=== PATIENT | female | born 1970 | race Caucasian/White ===

== ENCOUNTER 2017-01-07 14:25 | Emergency (ER) | payer OTHER ==
[~2017-01-07 14:25] MED LIST: ANTIVERT25 MG PO; DARVOCET-N 1001 TAB PO; FAMCICLOVIR500 MG PO; LEXAPRO10 MG PO; LEXAPRO20 MG PO; MOTRIN800 MG PO; PERCOCET 5/3251 TAB PO; PROZAC20 M2 PO; VALIUM2 MG PO; XANAX0.25 MG PO; XANAX0.5 MG PO; ZOFRAN ODT4 MG/UDTAB PO; ZOFRAN4 M1 PO; ZOFRAN4 MG PO
[2017-01-07] MEDS ORDERED: NEURONTIN600 M1 PO (14:34)
[2017-01-07] MEDS ORDERED: REVIA50 M1 PO (14:34)
[2017-01-07] MEDS ORDERED: PROZAC20 M3 PO (14:34)
[2017-01-07] MEDS ORDERED: XANAX1 M1 PO (14:35)
[2017-01-07] MEDS ORDERED: SYNTHROID25 MC1 PO (14:35)
[2017-01-07] MEDS ORDERED: CYANOCOBAL1000 MCG/3 IM (14:35)
[2017-01-07] MEDS ORDERED: VITAMIN D31000 UNI3 PO (14:50)
[2017-01-07] MEDS ORDERED: IBUPROFEN200 M2 PO (16:13)
[2017-01-07] MEDS ORDERED: VALIUM2 M1 PO (16:52)
[2017-01-07] MEDS ORDERED: ZOFRAN4 M2 PO (16:52)
[2017-01-07] MEDS ORDERED: MECLIZINE HCL25 M3 PO (16:52)
== END 2017-01-07 17:29 ==
LOC: EDMED 14:25
DX: R42 Dizziness and giddiness (principal); E07.9 Disorder of thyroid, unspecified; Z90.89 Acquired absence of other organs; Z90.710 Acquired absence of both cervix and uterus; Z79.890 Hormone replacement therapy
CPT/HCPCS: J1885; J2405; J3360